=== PATIENT | female | born 1965 | race Caucasian/White ===

== ENCOUNTER 2018-12-09 14:32 | Emergency (ER) | payer OTHER ==
[~2018-12-09] VITALS: Ht 162.6 cm; Wt 59.0 kg
[~2018-12-09 14:32] MED LIST: ATACAND16 MG PO; CLONAZEPAM0.5 M1 PO; HYOSCYAMINE0.125 M1 SL; OXYC1TAB9 PO; SYNTH PO; TEMAZEPAM PO; WELLBUTR PO
== END 2018-12-09 18:56 | disposition home or self-care (01) ==
LOC: ER 14:32
DX: K29.00 Acute gastritis without bleeding (principal)

== ENCOUNTER 2020-03-27 06:35 | Day surgery (SDC) | payer OTHER | END 2020-03-27 10:10 | disposition home or self-care (01) | LOC: AMB-ENDOS 06:35 → ADM 13:45 → AMB-ENDOS 13:45 | PROVIDERS: ATTEND Surgery | DX: K63.5 Polyp of colon (principal); K62.4 Stenosis of anus and rectum; K64.8 Other hemorrhoids ==

== ENCOUNTER 2021-07-22 06:40 | Day surgery (SDC) | payer OTHER | END 2021-07-22 14:05 | disposition home or self-care (01) | LOC: AMB-ENDOS 06:40 | PROVIDERS: ATTEND Surgery | DX: D13.1 Benign neoplasm of stomach (principal); D13.2 Benign neoplasm of duodenum; K64.8 Other hemorrhoids; Z20.822 Contact with and (suspected) exposure to COVID-19 ==

== ENCOUNTER 2025-06-18 21:51 | Inpatient (IN) | payer OTHER ==
[~2025-06-18] VITALS: Ht 132.1 cm; Wt 59.0 kg
[2025-06-18] MEDS ORDERED: 0.9 % SODIUM CHLORIDE 1,000 ML IV SCH (22:15)
[2025-06-18 23:09] LABS: BASO % 0.6 % (0.1-1.2); EOS # 0.07 (0.04-0.54); EOS % 1.0 % (0.7-7.0); LYMPH # 2.34 (1.18-3.74); LYMPH % 33.5 % (19.3-53.1); MEAN PLATELET VOLUME 10.70 fl (9.4-12.4); MONO # 0.61 (0.24-0.82); MONO % 8.7 % (4.7-12.5); NEUT # 3.90 (1.56-6.13); NEUT % 55.9 % (34.0-71.1); RED CELL DISTRIBUTION WIDTH 12.3 % (11.6-14.4)
[2025-06-18 23:26] LABS: COVID-19 AG NEGATIVE (NEGATIVE)
[2025-06-18 23:26] LABS: INR 1.0
[2025-06-18 23:29] LABS: ERYTHROCYTE SEDIMENTATION RATE 29 mm/hr (0-30)
[2025-06-18 23:32] LABS: ALT/SGPT 51.0 U/L (12-78); AST/SGOT 15.0 U/L (15-37); BILIRUBIN TOTAL 0.68 mg/dL (0.3-1.2); BUN CREA RATIO 25.0 (7.0-25.0); CREATININE SERUM 0.84 mg/dL (0.55-1.02); GFR 69.88; GLOBULINA 3.3 G/DL (2.4-3.5); GLUCOSE FASTING 96.0 mg/dL (65-100); OSMOLALITY SERUM 288.0 MOSM/KG (275-295)
[2025-06-19] MEDS ORDERED: PIPERACILLIN/TAZOBACTAM SODIUM 3.375 GM in DEXTROSE 5 % IN WATER 100 ML IV SCH
[2025-06-19 00:50] LABS: URINE APPEARANCE Clear; URINE BILIRRUBIN Negative (NEGATIVE); URINE BLOOD Trace; URINE COLOR Yellow; URINE GLUCOSE Negative (NEGATIVE); URINE KETONE Negative (NEGATIVE); URINE LEUKOCYTE Trace; URINE NITRATE Negative; URINE PROTEIN Negative (NEGATIVE); URINE UROBILINOGEN 0.2 E.U./dl
[2025-06-19 00:53] LABS: URINE BACTERIA 71.9 uL (0.0-1933); URINE CAST 2.05 uL (0.0-1.40); URINE EPITHELIAL CELLS 36.9 uL (0.0-38.8); URINE RBC 32.9 uL (0.0-20.8); URINE WBC 39.8 uL (0.0-23.2)
[2025-06-19 04:09] VITALS: BP 130/65; O2SAT 98
[2025-06-19 04:12] VITALS: BP 130/77
[2025-06-19 08:00] VITALS: BP 117/73; O2SAT 95
[2025-06-19] MEDS ORDERED: ONDANSETRON HCL 4 MG in 0.9 % SODIUM CHLORIDE 50 ML IV PRN (08:00)
[2025-06-19] MEDS ORDERED: MORPHINE SULFATE 4 MG/ML CARTRIDGE IV PRN (08:00)
[2025-06-19] MEDS ORDERED: FAMOTIDINE/PF 20 MG/2 ML VIAL IV SCH (09:00)
[2025-06-19] MEDS ORDERED: DIPHENHYDRAMINE HCL 50 MG/ML VIAL 1ML IV ONE (10:15)
[2025-06-19] MEDS ORDERED: fentaNYL CITRATE 50 MCG/ML AMPUL IV ONE (10:15)
[2025-06-19] MEDS ORDERED: MIDAZOLAM HCL 2 MG/2 ML VIAL IV ONE (10:15)
[2025-06-19] MEDS ORDERED: ONDANSETRON HCL 4 MG in DEXTROSE 5 % IN WATER 50 ML IV PRN (14:15)
[2025-06-19 15:39] VITALS: BP 117/69; O2SAT 97
[2025-06-19] MEDS ORDERED: POLYETHYLENE GLYCOL 3350 17 GM BLIST.PACK PO SCH (17:00)
[2025-06-19] MEDS ORDERED: ACETAMINOPHEN 500 MG GEL..CAP PO SCH (18:00)
[2025-06-20 02:54] VITALS: BP 99/68; O2SAT 95
[2025-06-20] MEDS ORDERED: ENALAPRILAT DIHYDRATE 1.25 MG/ML VIAL IV PRN (05:45)
[2025-06-20] MEDS ORDERED: LEVOTHYROXINE SODIUM 88 MCG TABLET PO SCH (06:00)
[2025-06-20 08:56] VITALS: BP 115/70; O2SAT 97
[2025-06-20 08:57] LABS: BUN CREA RATIO 17.0 (7.0-25.0); CREATININE SERUM 0.9 mg/dL (0.55-1.02); GFR 64.54; GLUCOSE FASTING 71.0 mg/dL (65-100); OSMOLALITY SERUM 288.0 MOSM/KG (275-295); T4 TOTAL 10.36 UG/DL (4.8-13.9); TSH 0.813 uIU/mL (0.358-3.74)
[2025-06-20] MEDS ORDERED: ENOXAPARIN SODIUM 40 MG/0.4 ML SYRINGE SUBCUTANEO SCH (09:00)
[2025-06-20] MEDS ORDERED: CANDESARTAN CILEXETIL 32 MG TABLET PO SCH (09:00)
[2025-06-20] MEDS ORDERED: BUPROPION HCL 150 MG TABLET.SA PO SCH (09:00)
[2025-06-20 16:00] VITALS: BP 138/75; O2SAT 99
[2025-06-21] VITALS: BP 102/61; O2SAT 97
[2025-06-21] MEDS ORDERED: DIATRIZOATE MEGLUMINE, SODIUM 30 ML BOTTLE PO NR (08:00)
[2025-06-21 10:05] VITALS: BP 135/59; O2SAT 98
[2025-06-21 17:23] VITALS: BP 149/73; O2SAT 98
[2025-06-21 23:55] VITALS: BP 123/71; O2SAT 96
[2025-06-22 06:40] LABS: BASO % 0.6 % (0.1-1.2); EOS # 0.29 (0.04-0.54); EOS % 5.4 % (0.7-7.0); LYMPH # 1.76 (1.18-3.74); LYMPH % 33.0 % (19.3-53.1); MEAN PLATELET VOLUME 10.10 fl (9.4-12.4); MONO # 0.47 (0.24-0.82); MONO % 8.8 % (4.7-12.5); NEUT # 2.76 (1.56-6.13); NEUT % 51.6 % (34.0-71.1); RED CELL DISTRIBUTION WIDTH 12.3 % (11.6-14.4)
[2025-06-22 07:05] LABS: BUN CREA RATIO 8.0 (7.0-25.0); CREATININE SERUM 0.86 mg/dL (0.55-1.02); GFR 68.01; GLUCOSE FASTING 77.0 mg/dL (65-100); OSMOLALITY SERUM 291.0 MOSM/KG (275-295)
[2025-06-22 08:00] VITALS: BP 135/68; O2SAT 98
[2025-06-22 12:24] LABS: BASO % 0.3 % (0.1-1.2); EOS # 0.23 (0.04-0.54); EOS % 3.4 % (0.7-7.0); LYMPH # 2.01 (1.18-3.74); LYMPH % 29.9 % (19.3-53.1); MEAN PLATELET VOLUME 9.40 fl (9.4-12.4); MONO # 0.59 (0.24-0.82); MONO % 8.8 % (4.7-12.5); NEUT # 3.84 (1.56-6.13); NEUT % 57.2 % (34.0-71.1); RED CELL DISTRIBUTION WIDTH 12.4 % (11.6-14.4)
[2025-06-22] MEDS ORDERED: POTASSIUM CHLORIDE 20MEQ/100ML H2O PB IV NR (13:00)
[2025-06-22] MEDS ORDERED: FLUTICASONE PROPIONATE 50 MCG SPRAY NASAL SCH (13:07)
[2025-06-22 16:58] VITALS: BP 125/67; O2SAT 97
[2025-06-22] MEDS ORDERED: LACTOBACILLUS ACIDOPHILUS 1 CAP CAP PO SCH (21:00)
[2025-06-22] MEDS ORDERED: TEMAZEPAM 15 MG CAPSULE PO SCH (21:00)
[2025-06-22 23:03] LABS: URINE APPEARANCE Clear; URINE BILIRRUBIN Negative (NEGATIVE); URINE BLOOD Small; URINE COLOR Yellow; URINE GLUCOSE Negative (NEGATIVE); URINE KETONE Negative (NEGATIVE); URINE LEUKOCYTE Negative; URINE NITRATE Negative; URINE PROTEIN Negative (NEGATIVE); URINE UROBILINOGEN 0.2 E.U./dl
[2025-06-22 23:06] LABS: URINE BACTERIA 4.7 uL (0.0-1933); URINE EPITHELIAL CELLS 1.6 uL (0.0-38.8); URINE RBC 4.8 uL (0.0-20.8)
[2025-06-22 23:11] LABS: URINE CAST 0.00 uL (0.0-1.40); URINE WBC 1.2 uL (0.0-23.2)
[2025-06-23] VITALS: BP 114/61; O2SAT 96
[2025-06-23 07:29] LABS: BASO % 0.6 % (0.1-1.2); EOS # 0.35 (0.04-0.54); EOS % 5.5 % (0.7-7.0); LYMPH # 2.04 (1.18-3.74); LYMPH % 31.8 % (19.3-53.1); MEAN PLATELET VOLUME 10.00 fl (9.4-12.4); MONO # 0.58 (0.24-0.82); MONO % 9.0 % (4.7-12.5); NEUT # 3.38 (1.56-6.13); NEUT % 52.8 % (34.0-71.1); RED CELL DISTRIBUTION WIDTH 12.5 % (11.6-14.4)
[2025-06-23 08:09] LABS: BUN CREA RATIO 6.0 (7.0-25.0); CREATININE SERUM 1.08 mg/dL (0.55-1.02); GFR 52.29; GLUCOSE FASTING 77.0 mg/dL (65-100); OSMOLALITY SERUM 289.0 MOSM/KG (275-295)
[2025-06-23 08:31] VITALS: BP 127/75; O2SAT 99
[2025-06-23] MEDS ORDERED: Cyanocobalamin/Mecobalamin 1 TAB.SL SL SCH (09:00)
[2025-06-23] MEDS ORDERED: SOD FERRIC GLUC COMPLX/SUCROSE 62.5 MG in 0.9 % SODIUM CHLORIDE 50 ML IV SCH (09:00)
[2025-06-23] MEDS ORDERED: SODIUM CHLORIDE 0.45 % 1,000 ML IV SCH (10:15)
[2025-06-23] MEDS ORDERED: BENZONATATE 100 MG CAPSULE PO SCH (13:00)
[2025-06-23 16:00] VITALS: BP 133/58; O2SAT 95
[2025-06-23] MEDS ORDERED: GUAIFENESIN 600 MG TABLET.SA PO SCH (17:00)
[2025-06-24] VITALS: BP 132/68; O2SAT 99
[2025-06-24 07:32] LABS: BASO % 0.6 % (0.1-1.2); EOS # 0.28 (0.04-0.54); EOS % 4.3 % (0.7-7.0); LYMPH # 1.41 (1.18-3.74); LYMPH % 21.7 % (19.3-53.1); MEAN PLATELET VOLUME 10.00 fl (9.4-12.4); MONO # 0.54 (0.24-0.82); MONO % 8.3 % (4.7-12.5); NEUT # 4.19 (1.56-6.13); NEUT % 64.5 % (34.0-71.1); RED CELL DISTRIBUTION WIDTH 12.5 % (11.6-14.4)
[2025-06-24 07:57] LABS: BUN CREA RATIO 4.0 (7.0-25.0); CREATININE SERUM 1.01 mg/dL (0.55-1.02); GFR 56.49; GLUCOSE FASTING 80.0 mg/dL (65-100); OSMOLALITY SERUM 290.0 MOSM/KG (275-295)
[2025-06-24 08:00] VITALS: BP 156/75; O2SAT 97
[2025-06-24] MEDS ORDERED: POTASSIUM CHLORIDE 20MEQ/100ML H2O PB IV NR (09:15)
[2025-06-24 16:00] VITALS: BP 150/70; O2SAT 97
[2025-06-25 00:12] VITALS: BP 136/70; O2SAT 95
[2025-06-25 08:00] VITALS: BP 148/67; O2SAT 96
[2025-06-25 16:00] VITALS: BP 163/90; O2SAT 100
[2025-06-25 20:36] VITALS: BP 153/79
[2025-06-26 00:03] VITALS: BP 164/83; O2SAT 97
[2025-06-26 06:11] LABS: BASO % 0.5 % (0.1-1.2); EOS # 0.26 (0.04-0.54); EOS % 3.4 % (0.7-7.0); LYMPH # 1.54 (1.18-3.74); LYMPH % 20.0 % (19.3-53.1); MEAN PLATELET VOLUME 9.80 fl (9.4-12.4); MONO # 0.70 (0.24-0.82); MONO % 9.1 % (4.7-12.5); NEUT # 5.12 (1.56-6.13); NEUT % 66.4 % (34.0-71.1); RED CELL DISTRIBUTION WIDTH 12.8 % (11.6-14.4)
[2025-06-26 06:42] LABS: BUN CREA RATIO 6.0 (7.0-25.0); CREATININE SERUM 1.1 mg/dL (0.55-1.02); GFR 51.19; GLUCOSE FASTING 83.0 mg/dL (65-100); OSMOLALITY SERUM 288.0 MOSM/KG (275-295)
[2025-06-26 07:50] VITALS: BP 164/67; O2SAT 97
[2025-06-26] MEDS ORDERED: POTASSIUM CHLORIDE 20MEQ/100ML H2O PB IV NR (13:00)
[2025-06-26 16:46] VITALS: BP 164/70; O2SAT 96
[2025-06-27 01:32] VITALS: BP 136/79; O2SAT 100
[2025-06-27 07:05] LABS: BUN CREA RATIO 8.0 (7.0-25.0); CREATININE SERUM 1.04 mg/dL (0.55-1.02); GFR 54.62; GLUCOSE FASTING 81.0 mg/dL (65-100); OSMOLALITY SERUM 286.0 MOSM/KG (275-295)
[2025-06-27 09:29] VITALS: BP 173/76; O2SAT 98
[2025-06-27] MEDS ORDERED: POTASSIUM CHLORIDE 20MEQ/100ML H2O PB IV NR (12:00)
[2025-06-27 17:08] VITALS: BP 185/81; O2SAT 98
[2025-06-28 01:27] VITALS: BP 132/72; O2SAT 100
[2025-06-28] MEDS ORDERED: AMLODIPINE BESYLATE 5 MG TABLET PO SCH (09:00)
[2025-06-28 09:03] VITALS: BP 167/81; O2SAT 99
[2025-06-28] MEDS ORDERED: IOVERSOL 320 MG/ML - 50 ML VIAL IV ONE (11:45)
[2025-06-28] MEDS ORDERED: CHLORHEXIDINE GLUCONATE 120 ML BOTTLE TOP ONE (11:46)
[2025-06-28 16:29] VITALS: BP 149/79; O2SAT 95
[2025-06-28] MEDS ORDERED: ONDANSETRON HCL 4 MG in 0.9 % SODIUM CHLORIDE 50 ML IV PRN (17:15)
[2025-06-28] MEDS ORDERED: MORPHINE SULFATE 4 MG/ML CARTRIDGE IV PRN (17:15)
[2025-06-28] MEDS ORDERED: TRAMADOL HCL 50 MG TABLET PO PRN (21:45)
[2025-06-29 00:28] VITALS: BP 148/66; O2SAT 98
[2025-06-29 07:30] VITALS: BP 172/70; O2SAT 97
[2025-06-29] MEDS ORDERED: HYDROCHLOROTHIAZIDE 12.5 MG CAPSULE PO SCH (09:00)
[2025-06-29] MEDS ORDERED: HYDROCHLOROTHIAZIDE 12.5 MG CAPSULE PO NR (11:00)
[2025-06-29] MEDS ORDERED: CLONAZEPAM 0.5 MG TABLET PO PRN (14:45)
[2025-06-29 17:35] VITALS: BP 152/73; O2SAT 97
[2025-06-30 00:39] VITALS: BP 149/72; O2SAT 96
[2025-06-30] MEDS ORDERED: DEXTROSE 5%-WATER 100ML IV.SOLN ONE (06:22)
[2025-06-30 07:10] LABS: BASO % 0.9 % (0.1-1.2); EOS # 0.23 (0.04-0.54); EOS % 3.3 % (0.7-7.0); LYMPH # 1.88 (1.18-3.74); LYMPH % 26.8 % (19.3-53.1); MEAN PLATELET VOLUME 9.60 fl (9.4-12.4); MONO # 0.59 (0.24-0.82); MONO % 8.4 % (4.7-12.5); NEUT # 4.22 (1.56-6.13); NEUT % 60.0 % (34.0-71.1); RED CELL DISTRIBUTION WIDTH 13.5 % (11.6-14.4)
[2025-06-30 07:51] LABS: BUN CREA RATIO 12.0 (7.0-25.0); CREATININE SERUM 1.04 mg/dL (0.55-1.02); GFR 54.62; GLUCOSE FASTING 95.0 mg/dL (65-100); OSMOLALITY SERUM 283.0 MOSM/KG (275-295)
[2025-06-30 08:27] VITALS: BP 123/67; O2SAT 97
[2025-06-30] MEDS ORDERED: AMOX1TAB5 PO (08:29)
[2025-06-30] MEDS ORDERED: PEPCID AC20 MG PO (08:29)
[2025-06-30] MEDS ORDERED: INTESTINEX680 M1 PO (08:29)
[2025-06-30] MEDS ORDERED: POTASSIUM CHLORIDE 8 MEQ TABLET PO STA (12:23)
[2025-07-03 12:39] VITALS: BP 165/70; O2SAT 100
== END 2025-06-30 12:50 | disposition home or self-care (01) | DRG 660 ==
LOC: ER 21:51 → SURH 23:14 → SURG 23:14 → SURH 06-24 10:32
PROVIDERS: Internal Medicine Geriatric Medicine; Internal Medicine Infectious Disease; Preventive Medicine Public Health & General Preventive Medicine; Urology; ADMIT Surgery; ATTEND Surgery
PROC: 0DJD8ZZ Inspection of Lower Intestinal Tract, Via Natural or Artificial Opening Endoscopic (ICD-10-PCS; 2025-06-19)
PROC: BW21YZZ Computerized Tomography (CT Scan) of Abdomen and Pelvis using Other Contrast (ICD-10-PCS; 2025-06-21)
PROC: CT131ZZ Planar Nuclear Medicine Imaging of Kidneys, Ureters and Bladder using Technetium 99m (Tc-99m) (ICD-10-PCS; 2025-06-22)
PROC: BT4JZZZ Ultrasonography of Kidneys and Bladder (ICD-10-PCS; 2025-06-26)
PROC: 0T778DZ Dilation of Left Ureter with Intraluminal Device, Via Natural or Artificial Opening Endoscopic (ICD-10-PCS; principal; 2025-06-28 18:15)
DX: N13.1 Hydronephrosis with ureteral stricture, not elsewhere classified (principal); C18.7 Malignant neoplasm of sigmoid colon; K52.9 Noninfective gastroenteritis and colitis, unspecified; N17.9 Acute kidney failure, unspecified; K64.8 Other hemorrhoids; I10 Essential (primary) hypertension; E03.9 Hypothyroidism, unspecified; E78.5 Hyperlipidemia, unspecified; E87.6 Hypokalemia; D64.89 Other specified anemias; J31.0 Chronic rhinitis

== ENCOUNTER 2025-08-23 07:08 | Outpatient (CLI) | payer OTHER ==
[~2025-08-23 07:08] MED LIST changes: +AMOX1TAB5 PO; +INTESTINEX680 M1 PO; +PEPCID AC20 MG PO
== END 2025-08-23 07:09 | disposition home or self-care (01) ==
LOC: NUCLEAR 07:08
PROVIDERS: ATTEND Surgery
DX: C19 Malignant neoplasm of rectosigmoid junction (principal)